=== PATIENT | male | born 1975 | race Caucasian/White ===

== ENCOUNTER 2018-09-02 15:44 | Emergency (ER) | payer SELFPAY ==
[~2018-09-02] VITALS: Ht 170.2 cm; Wt 70.0 kg
[2018-09-02] MEDS ORDERED: SODIUM CHLORIDE 0.9% 1,000 ML IV ONE (17:45)
[2018-09-02 20:45] VITALS: BP 123/83
== END 2018-09-02 21:00 | disposition home or self-care (01) ==
LOC: ER 15:44
DX: K40.90 Unilateral inguinal hernia, without obstruction or gangrene, not specified as recurrent (principal); F10.129 Alcohol abuse with intoxication, unspecified
CPT/HCPCS: 99284; J7030